=== PATIENT | female | born 1990 | race African-American/Black ===

== ENCOUNTER 2017-09-20 19:55 | Emergency (ER) | payer SELFPAY ==
[~2017-09-20 19:55] MED LIST: DIFL150T PO; METR1GEL2 PV
[2017-09-20 20:24] VITALS: BP 140/73; PULSE 98; RESP 20; TEMP 98.4
--- NOTE | 2017-09-20 21:39 | RADRPT ---
EXAM DATE/TIME: 09/20/2017 21:00 [place] COMPARISON: No previous studies available for comparison. INDICATIONS : Patient fell and landed on her hand. Unable to straighten right 5th digit. MEDICAL HISTORY : None. SURGICAL HISTORY : None. ENCOUNTER: Initial ACUITY: 1 day PAIN SCORE: 5/10 LOCATION: Right hand, 5th digit. FINDINGS: Examination of the fifth digit of the right hand demonstrates no evidence of fracture or dislocation. No radiopaque foreign bodies are seen. The soft tissues are intact. CONCLUSION: 1. No acute bony abnormality identified. Girma Soriano MD on September 20, 2017 at 21:36 Board Certified Radiologist. This report was verified electronically.
--- NOTE | 2017-09-20 21:46 | PD ---
HPI Chief Complaint: Injury Time Seen by Provider: 21:32 Travel History International Travel<30 days: No Contact w/Intl Traveler<30days: No Traveled to known affect area: No History of Present Illness HPI 26-year-old female complains of right fifth finger injury. Patient states that she fell this evening. Patient states that she had pain localized on the right fifth finger. Patient denies any other injury. Patient states the pain is sharp pain. Patient denies any pain radiation. On a scale of 1-10 the pain is a 4. PFSH Past Medical History Medical History: Denies Significant Hx Diminished Hearing: No Immunizations Current: Yes Tetanus Vaccination: > 5 Years Influenza Vaccination: No ?: Not LMP: LAST WEEK : 0 Past Surgical History Surgical History: No Previous Surgery Social History Alcohol Use: No Tobacco Use: No Substance Use: No Allergies-Medications (Allergen,Severity, Reaction): Coded Allergies: No Known Allergies (Verified Adverse Reaction, Unknown, 09/20/17) Reported Meds & Prescriptions Reported Meds & Active Scripts Active No Active Prescriptions or Reported Medications Review of Systems General / Constitutional: No: Fever Eyes: No: Visual changes HENT: No: Headaches Cardiovascular: No: Chest Pain or Discomfort Respiratory: No: Shortness of Breath Gastrointestinal: No: Abdominal Pain Genitourinary: No: Dysuria Musculoskeletal: Positive: Pain Skin: No Rash Neurologic: No: Weakness Psychiatric: No: Depression Endocrine: No: Polydipsia Hematologic/Lymphatic: No: Easy Bruising Physical Exam Narrative GENERAL: Well-nourished, well-developed patient. SKIN: Focused skin assessment warm/dry. HEAD: Normocephalic. EYES: No scleral icterus. No injection or drainage. NECK: Supple, trachea midline. No JVD or lymphadenopathy. CARDIOVASCULAR: Regular rate and rhythm without murmurs, gallops, or rubs. RESPIRATORY: Breath sounds equal bilaterally. No accessory muscle use. GASTROINTESTINAL: Abdomen soft, non-tender, nondistended. MUSCULOSKELETAL: No cyanosis, or edema. BACK: Nontender without obvious deformity. No CVA tenderness. Patient has mild tenderness palpation of the DIP joint right fifth finger. Patient has distal phalange in the flexion position. Patient is unable to extend the distal phalange at the DIP joint. Sensory function intact. Data Data Last Documented VS Vital Signs Date Time Temp Pulse Resp B/P (MAP) Pulse Ox O2 Delivery O2 Flow Rate FiO2 09/20/17 20:28 Room Air 09/20/17 20:24 98.4 98 20 140/73 (95) Orders Orders Finger ([id number]) (09/20/17 ) MDM Medical Decision Making Medical Screen Exam Complete: Yes Emergency Medical Condition: Yes Differential Diagnosis Differential diagnosis including fracture, tendon injury. Narrative Course 26-year-old female with injury to right fifth finger. Patient has distal phalange in flexion position. Unable to extend the distal phalange. Finger splint applied to keep the finger in extension position. Diagnosis Primary Impression: Mallet finger of right hand Patient Instructions: General Instructions Additional Instructions: Keep finger splint in place. Tylenol ibuprofen for pain. Follow-up with hand surgeon. Med/Other Pt SpecificInfo: No Meds Exist/No RX given Scripts No Active Prescriptions or Reported Meds Ronnie Bethea MD Sep 20, 2017 21:46
== END 2017-09-20 21:58 | disposition home or self-care (01) ==
LOC: PHEFT 19:55
DX: M20.011 Mallet finger of right finger(s) (principal); W19.XXXA Unspecified fall, initial encounter
CPT/HCPCS: 29130; 73140